=== PATIENT | male | born 1980 | race Caucasian/White ===

== ENCOUNTER → 2016-12-31 | Outpatient (CLI) | payer OTHER ==
[2016-12-31 11:54] LABS: Blood Urea Nitrogen 16 mg/dL (9-20); Non-African American GFR(MDRD) >60 (>60 ml/min/1.73 sqM)
== END | disposition home or self-care (01) ==
LOC: LABWHC1 11:02
PROVIDERS: ATTEND Internal Medicine Interventional Cardiology
DX: I71.2 Thoracic aortic aneurysm, without rupture (principal)
CPT/HCPCS: 36415; 82565; 84520

== ENCOUNTER 2017-08-05 00:22 | Emergency (ER) | payer OTHER ==
[2017-08-05 00:58] LABS: Appearance,Urine Clear (Clear); Bilirubin,Urine Negative (Negative); Glucose,Urine (UA) Negative (Negative); Ketones,Urine Trace (Negative); Leukocyte Esterase,Urine Negative (Negative); Mucus,Urine Few /hpf; Nitrite,Urine Negative (Negative); PH, Urine 5.5 (5.0-8.0); Particle Count 4225; Protein,Urine Trace (Negative); RBC,Urine 1 /hpf (0-5); Specific Gravity,Urine 1.025 (1.001-1.035); Sperm,Urine Rare /hpf; Squamous Epithelial Cell,Urine <1 /hpf (0-4); UA Billing (MACRO vs. MICRO) MICRO; WBC,Urine 1 /hpf (0-5)
--- NOTE | 2017-08-05 01:40 | ED ---
Male Urogenital HPI - General Chief complaint: Urogenital Stated complaint: Groin Pain Time Seen by Provider: 08/05/17 00:32 Source: patient, RN notes reviewed Mode of arrival: ambulatory Limitations: no limitations - History of Present Illness Initial comments: This a 37-year-old male presents emergency Department chief complaint of scrotal pain. Patient states that he's had some on and off pain persisted 1 away but returned again today after having intercourse. Patient states that he feels that there may be an abscess or some swelling around his left testicle. He states it is tender to touch. Patient denies any dysuria or hematuria. Denies any concerns about possible STDs. Patient states that he's never had any like this in the past no prior scrotal surgeries. He shouldn't denies any fever, chills, abdominal pain denies any penile lesions or sores. - Related Data Home Medications Medication Instructions Recorded Confirmed Fluticasone/Vilanterol [Breo 1 inhalation PO Q24HR 08/05/17 08/05/17 Ellipta 100-25 Mcg Inhaler] Loratadine [Claritin] 10 mg PO DAILY 08/05/17 08/05/17 Losartan/Hydrochlorothiazide 1 each PO DAILY 08/05/17 08/05/17 [Losartan-Hctz 100-12.5 mg Tab] Pantoprazole Sodium 40 mg PO DAILY 08/05/17 08/05/17 Sertraline [Zoloft] 50 mg PO BID 08/05/17 08/05/17 cloNIDine HCL [Catapres] 0.2 mg PO BID 08/05/17 08/05/17 Previous Rx's Medication Instructions Recorded amLODIPine [Norvasc] 5 mg PO DAILY #30 tab 03/30/16 Ibuprofen [Motrin] 600 mg PO Q8HR PRN #30 tab 08/05/17 Allergies Allergy/AdvReac Type Severity Reaction Status Date / Time No Known Allergies Allergy Verified 08/05/17 00:27 Review of Systems ROS Statement: Those systems with pertinent positive or pertinent negative responses have been documented in the HPI. ROS Other: All systems not noted in ROS Statement are negative. Past Medical History Past Medical History: GERD/Reflux, Hypertension Additional Past Medical History / Comment(s): Pt recently started on antihypertensives and an inhaler for URI. He has remote hx of exercise induced asthma as a child. History of Any Multi-Drug Resistant Organisms: None Reported Past Surgical History: Tonsillectomy Past Anesthesia/Blood Transfusion Reactions: Postoperative Nausea & Vomiting ( PONV) Past Psychological History: No Psychological Hx Reported Smoking Status: Current every day smoker Past Alcohol Use History: None Reported Past Drug Use History: None Reported - Past Family History Father Additional Family Medical History / Comment(s): Father was involved in a MVA and is wheelchair bound. Mother Family Medical History: No Reported History Additional Family Medical History / Comment(s): Mother is 61 yrs old. General Exam Limitations: no limitations General appearance: alert, in no apparent distress Respiratory exam: Present: normal lung sounds bilaterally. Absent: respiratory distress, wheezes, rales, rhonchi, stridor Cardiovascular Exam: Present: regular rate, normal rhythm, normal heart sounds. Absent: systolic murmur, diastolic murmur, rubs, gallop, clicks GI/Abdominal exam: Present: soft, normal bowel sounds. Absent: distended, tenderness, guarding, rebound, rigid exam: Present: testicular tenderness (Left mild), scrotal swelling (Minimal left). Absent: urethral discharge Course Vital Signs 08/05/17 00:24 Temperature 98.1 F Pulse Rate 68 Respiratory 18 Rate Blood Pressure 147/89 O2 Sat by Pulse 98 Oximetry Medical Decision Making - Medical Decision Making 37-year-old male presented for testicular mass with discomfort. Patient noticed a lump on his left testicle that was tender. Patient had an ultrasound which showed some inflammation of the left epididymis more consistent with epididymitis. Patient we treated for possible gonorrhea chlamydia infection. Patient's urinalysis does not show any acute infection issues urine is cultured. There was mention of possible intermittent torsion on ultrasound. The patient is symptom-free does not have any pain this time. I did inform him that if he has any increasing pain or excruciating pain that he needs to return to the emergency room immediately or follow-up with urology if office is open. He states he does understand this and has no further questions. - Lab Data Lab Results 08/05/17 Range/Units 00:45 Urine Color Yellow Urine Appearance Clear (Clear) Urine pH 5.5 (5.0-8.0) Ur Specific [place] 1.025 (1.001-1.035) Urine Protein Trace H (Negative) Urine Glucose (UA) Negative (Negative) Urine Ketones Trace H (Negative) Urine Blood Trace H (Negative) Urine Nitrite Negative (Negative) Urine Bilirubin Negative (Negative) Urine Urobilinogen 2.0 (<2.0) mg/dL Ur Leukocyte Esterase Negative (Negative) Urine RBC 1 (0-5) /hpf Urine WBC 1 (0-5) /hpf Ur Squamous Epith Cells <1 (0-4) /hpf Urine Mucus Few H (None) /hpf Urine Sperm Rare (None) /hpf Disposition Clinical Impression: Epididymitis Disposition: HOME SELF-CARE Condition: Stable Instructions: Epididymitis (ED) Additional Instructions: Please return to the Emergency Department if symptoms worsen or any other concerns. Prescriptions: Ibuprofen [Motrin] 600 mg PO Q8HR PRN #30 tab PRN Reason: Pain Referrals: Peri Matos MD [Primary Care Provider] - 1-2 days David Stoner MD [STAFF PHYSICIAN] - 1-2 days Time of Disposition: 02:35
--- NOTE | 2017-08-05 02:25 | US ---
EXAM: US Scrotum CLINICAL HISTORY: Reason: Pain TECHNIQUE: Real-time ultrasound of the scrotum with color Doppler and image documentation. COMPARISON: No relevant prior studies available. FINDINGS: TESTICLES: Right Testicle: 4.0 x 2.2 x 3.5 cm Left Testicle: 4.7 x 2.6 x 3.6 cm EPIDIDYMIS HEAD AP: Right Epididymis: 1.2 cm Left Epididymis: 1.3 cm Bilateral testicular flow visualized, slightly more prominent on the left. Bilateral hydroceles. Within the lateral portion of the left scrotum there is an echogenic shadowing focus likely a calcification measuring 0. 4 x 0.2 x 0.3 cm. The left epididymis body appears to have an anechoic lesion likely a cyst measuring approximately 0.8 x 0.9 x 0.9 cm. IMPRESSION: 1. Bilateral testicular flow visualized, slightly more prominent on the left. Larger left testicle, nonspecific. Correlate clinically regarding possibility of inflammatory/infectious process or intermittent torsion. 2. Bilateral hydroceles. 3. Left epididymal cyst.
[2017-08-05] MEDS ORDERED: cefTRIAXone 250 MG VIAL IM STA (02:33)
[2017-08-05] MEDS ORDERED: AZITHROMYCIN 250 MG TAB PO STA (02:33)
[2017-08-05 02:46] VITALS: BP 136/80; PULSE 80; RESP 16; TEMP 97.8
== END 2017-08-05 02:45 | disposition home or self-care (01) ==
LOC: EC 00:22
DX: N45.1 Epididymitis (principal); K21.9 Gastro-esophageal reflux disease without esophagitis; I10 Essential (primary) hypertension; F17.200 Nicotine dependence, unspecified, uncomplicated; Z79.51 Long term (current) use of inhaled steroids; Z79.899 Other long term (current) drug therapy
CPT/HCPCS: 81001; 87491; 87591; 87086; 93975; 76870; 99283; 96372; J0696

== ENCOUNTER → 2017-08-27 | Outpatient (CLI) | payer OTHER ==
--- NOTE | 2017-08-27 11:52 | CT ---
EXAMINATION TYPE: CT abdomen pelvis wo con DATE OF EXAM: 08/27/2017 COMPARISON: NONE HISTORY: Lt flank pain, testicular pain, hematuria CT DLP: 976 mGycm Examination of the solid and hollow viscera is limited given the lack of contrast. FINDINGS: LUNG BASES: No evidence for nodule. No evidence for infiltrate. Small sliding-type hiatal hernia dete cted. LIVER/GB: The gallbladder is unremarkable. No space-occupying hepatic lesion. PANCREAS: No pancreatic mass identified. No inflammatory process seen. SPLEEN: Splenomegaly with craniocaudal measurement of about 14 cm. Multiple perisplenic varices noted in the region of the splenic hilum. No intrasplenic lesions seen. ADRENALS: No adrenal nodules identified. No evidence for thickening. KIDNEYS: 1.5 cm poorly defined area of decreased attenuation lower pole left kidney may reflect a sma ll cystic lesion. Consider further evaluation with ultrasound. 2 mm nonobstructing calculus mid pole right kidney. No hydronephrosis. The urinary bladder appears unremarkable. BOWEL: Appendix has a normal appearance. No evidence of bowel obstruction. No inflammatory process. Lymph nodes: No evidence for adenopathy greater than 1 cm. Abdominal aorta: Atheromatous changes seen. No evidence for aneurysm. Genital organs: No significant abnormality. Other: No significant abnormality. IMPRESSION: 1. NONOBSTRUCTING CALCULUS RIGHT KIDNEY. 2. PROBABLE CYST LOWER POLE LEFT KIDNEY HOWEVER CONSIDER FURTHER CHARACTERIZATION WITH ULTRASOUND. 3. SPLENOMEGALY WITH PERISPLENIC VARICES. SMALL HIATAL HERNIA.
== END | disposition home or self-care (01) ==
LOC: RADCTMAIN 10:59
PROVIDERS: ATTEND Urology
DX: N20.0 Calculus of kidney (principal); K44.9 Diaphragmatic hernia without obstruction or gangrene; I86.8 Varicose veins of other specified sites; R16.1 Splenomegaly, not elsewhere classified
CPT/HCPCS: 74176

== ENCOUNTER → 2017-10-04 | Outpatient (CLI) | payer OTHER ==
[2017-10-04 11:56] LABS: EKG EKG PERFORMED
[2017-10-04 12:22] LABS: CH 25.9; CHCM 34.1; HDW 3.02; HGB 15.3 gm/dL (13.0-17.5); MCH 25.4 pg (25.0-35.0); MCHC 33.4 g/dL (31.0-37.0); MCV 76.3 fL (80.0-100.0); Mean Platelet Volume 8.3; RBC 6.03 m/uL (4.30-5.90); RDW 13.7 % (11.5-15.5); WBC 6.1 k/uL (3.8-10.6)
[2017-10-04 12:29] LABS: Potassium 4.4 mmol/L (3.5-5.1)
== END | disposition home or self-care (01) ==
LOC: LABPAT 11:10
PROVIDERS: ATTEND Surgery
DX: Z01.810 Encounter for preprocedural cardiovascular examination (principal); Z01.812 Encounter for preprocedural laboratory examination; Z98.890 Other specified postprocedural states
CPT/HCPCS: 36415; 84132; 85027; 93005

== ENCOUNTER 2017-10-07 09:56 | Observation (INO) | payer OTHER ==
[2017-10-04 08:22] VITALS: BMI 40.1
[~2017-10-07 09:56] MED LIST: HEPARIN SODIUM,PORCINE 5,000 UNIT/ML 1 ML VIAL SQ ONE; MIDAZOLAM 2 MG/2 ML VIAL IV PRN; ONDANSETRON 4 MG/2 ML VIAL IVP ONE; SCOPOLAMINE 1.5MG/72HR PATCH TRANSDERM ONE; ceFAZolin 3 GM in SODIUM CHLORIDE 0.9% 100 ML IVPB ONE
[2017-10-07] MEDS: LACTATED RINGERS 1,000 ML IV SCH ×2 (10:37→11:18)
[2017-10-07] MEDS: DEXAMETHASONE SOD PHOSPHATE 10 MG/ML 1 ML VIAL IV ONE ×2 (10:39→12:43)
--- NOTE | 2017-10-07 10:53 | P.GSHP ---
History of Present Illness H&P Date: 10/07/17 Chief Complaint: GERD This is a 37-year-old male referred from Dr. Matos.The patient has had long- standing problems with reflux esophagitis. The patient underwent recent EGD is found have evidence of esophagitis. Patient has been well informed on the procedure of laparoscopic Arjun fundoplication. The patient is aware the risk of the conversion to the open procedure, risk of injury to the stomach, liver and spleen. The patient is also a risk of recurrent GERD and dysphagia symptoms. The patient understands there is a postoperative diet of full liquids for 2 weeks after surgery. Past Medical History Past Medical History: Asthma, GERD/Reflux, Hypertension Additional Past Medical History / Comment(s): ATHLETIC INDUCED ASTHMA., CHRONIC BACK PAIN., RIGHT KIDNEY STONE (CURRENT), STATES PAIN LEFT SIDE. HITAL HERNIA History of Any Multi-Drug Resistant Organisms: None Reported Past Surgical History: Tonsillectomy Additional Past Surgical History / Comment(s): TONSILLS (19 YRS OLD). EGD 09-17 Past Anesthesia/Blood Transfusion Reactions: Postoperative Nausea & Vomiting ( PONV) Smoking Status: Current every day smoker - Past Family History Father Additional Family Medical History / Comment(s): . Mother Family Medical History: No Reported History Additional Family Medical History / Comment(s): . Medications and Allergies Home Medications Medication Instructions Recorded Confirmed Type Losartan/Hydrochlorothiazide 1 each PO QAM 08/05/17 10/07/17 History [Losartan-Hctz 100-12.5 mg Tab] Pantoprazole Sodium 40 mg PO HS 08/05/17 10/07/17 History Sertraline [Zoloft] 50 mg PO HS 08/05/17 10/07/17 History cloNIDine HCL [Catapres] 0.2 mg PO QAM 08/05/17 10/07/17 History HYDROcodone/APAP 10-325MG [[place] 0.5 tab PO BID PRN 09/16/17 10/07/17 History 10-325] amLODIPine BESYLATE [Norvasc] 10 mg PO QAM 09/16/17 10/07/17 History Allergies Allergy/AdvReac Type Severity Reaction Status Date / Time No Known Allergies Allergy Verified 10/07/17 10:05 Surgical - Exam Vital Signs Temp Pulse Resp BP Pulse Ox 97.5 F L 73 20 158/97 94 L 10/07/17 10:19 10/07/17 10:19 10/07/17 10:19 10/07/17 10:19 10/07/17 10:19 - General well developed, no distress - Eyes PERRL - ENT normal pinna - Neck no masses - Respiratory normal expansion - Cardiovascular Rhythm: regular - Abdomen Abdomen: soft, non tender Assessment and Plan Assessment: GERD. We'll perform laparoscopic Arjun fundal plication.
[2017-10-07] MEDS ORDERED: NEOSTIGMINE 1 MG/ML 10 ML VIAL ONE (11:21)
[2017-10-07] MEDS ORDERED: SUCCINYLCHOLINE CHLORIDE VIAL 200 MG/10 ML VIAL IV ONE (11:21)
[2017-10-07] MEDS ORDERED: GLYCOPYRROLATE 0.2 MG/ML 2 ML VIAL ONE (11:21)
[2017-10-07] MEDS ORDERED: hydrALAZINE HCL 20 MG/ML 1 ML VIAL ONE (11:21)
[2017-10-07] MEDS ORDERED: ROCURONIUM BROMIDE 10 MG/ML 10 ML VIAL IV ONE (11:21)
[2017-10-07] MEDS ORDERED: LIDOCAINE 1% INJ 10MG/ML (20 ML MDV) ONE (11:21)
[2017-10-07] MEDS ORDERED: PROPOFOL 10 MG/ML 20 ML VIAL IV ONE (11:21)
[2017-10-07] MEDS ORDERED: MIDAZOLAM 2 MG/2 ML VIAL ONE (11:21)
[2017-10-07] MEDS ORDERED: KETOROLAC 30 MG/ML 1 ML VIAL ONE (11:21)
[2017-10-07] MEDS ORDERED: fentaNYL (PF) 50 MCG/ML 2 ML AMP ONE (11:21)
[2017-10-07] MEDS ORDERED: BUPIVACAINE (PF) 0.25% 30 ML VIAL SQ ONE (11:47)
[2017-10-07] MEDS ORDERED: LIDOCAINE 2%-EPI 1:100,000 20 ML VIAL SQ ONE (11:47)
[2017-10-07] MEDS ORDERED: LABETALOL 5 MG/ML VIAL MDV IVP ONE (12:49)
[2017-10-07] MEDS ORDERED: ONDANSETRON 4 MG/2 ML VIAL IVP ONE (12:54)
[2017-10-07] MEDS ORDERED: LACTATED RINGERS 1,000 ML IV ONE ×2 (13:05)
[2017-10-07] MEDS ORDERED: ONDANSETRON 4 MG/2 ML VIAL IVP PRN (13:08)
--- NOTE | 2017-10-07 13:11 | P.OP ---
Date of Procedure: 10/07/17 Preoperative Diagnosis: GERD Postoperative Diagnosis: GERD Procedure(s) Performed: Laparoscopic Arjun fundal plication Anesthesia: HARRISON Surgeon: En Abel Estimated Blood Loss (ml): 10 Pathology: none sent Condition: stable Disposition: PACU Description of Procedure: The patient was placed on the operating table in the supine position. The patient received general anesthesia. And was placed in dorsal lithotomy position. The patient was prepped and draped in the usual sterile fashion. The skin incision sites were anesthetized with 1% local Xylocaine. The skin was incised in the left periumbilical area and then using a blade less 5 mm trocar under direct visualization panel cavity was entered. After adequate insufflation the laparoscope was then placed into the peritoneal cavity. Next a 5 mm trochars placed in the right epigastric position. Another 5 millimeter trocar the right lateral position. Another 5 millimeter trocar in the left lateral position a 5 mm trocar is placed in the left epigastric position. And then the initial 5 mm trocar was exchanged for a 10 mm trocar. The left lateral lobe liver was retracted. The hernia was seen. The crural defect was then dissected using the Harmonic scissors device. A 360 crural dissection was performed the esophagus stomach was reduced back into the peritoneal Cavity. The crural defect was then closed using 2-0 Ethibond suture. Next the fundus of the stomach was mobilized using the [place] scissors device. and then a 58-Luxembourger bougie dilator was placed oropharynx passed into the esophagus and stomach the fundal plication wrap was then performed by grasping the fundus posteriorly and bringing it around the esophagus and stomach fundoplication was then performed using 2-0 Ethibond suture. Care was taken that the fundal location rested over top of the intra-abdominal esophagus. There was no injury seen to the stomach or esophagus. The dilator was then withdrawn. The abdomen was irrigated there is no bleeding seen. The trochars were then withdrawn and then skin incision sites were closed using 3-0 Monocryl suture Steri-Strips are applied. Patient thought procedure well and sent to recovery room in stable condition.
[2017-10-07] MEDS: HYDROmorphone 0.5 MG/0.5 ML SYRINGE IVP PRN ×4 (13:14→13:29)
[2017-10-07] MEDS: D5-0.45% NACL WITH KCL 20MEQ/L 1,000 ML IV SCH ×2 (14:01→22:28)
--- NOTE | 2017-10-07 14:36 | P.CONS ---
History of Present Illness - Reason for Consult Elevated blood pressure - History of Present Illness 37-year-old gentleman came in for Tamia fundoplication elective surgery patient is comparing of shoulder pain patient has highly elevated blood pressures systolics going up to 200 patient is on losartan and- hydrochlorothiazide, along with amlodipine and once a day clonidine which he didn't take his medications today morning which led to elevated blood pressure and pain also contributed to his elevated blood pressure patient denied any chest pain denied any shortness of breath denied any nausea lightheadedness confusion but does have abdominal soreness bilateral shoulders soreness secondary to referred pain from intra-abdominal gas insufflation Review of Systems REVIEW OF SYSTEMS: CONSTITUTIONAL: No fever, no malaise, no fatigue. HEENT: No recent visual problems or hearing problems. Denied any sore throat. CARDIOVASCULAR: No chest pain, orthopnea, PND, no palpitations, no syncope. PULMONARY: No shortness of breath, no cough, no hemoptysis. GASTROINTESTINAL: As mentioned above NEUROLOGICAL: No headaches, no weakness, no numbness. HEMATOLOGICAL: Denies any bleeding or petechiae. GENITOURINARY: Denies any burning micturition, frequency, or urgency. MUSCULOSKELETAL/RHEUMATOLOGICAL: Denies any joint pain, swelling, or any muscle pain. ENDOCRINE: Denies any polyuria or polydipsia. The rest of the 14-point review of systems is negative. Past Medical History Past Medical History: Asthma, GERD/Reflux, Hypertension Additional Past Medical History / Comment(s): ATHLETIC INDUCED ASTHMA., CHRONIC BACK PAIN., RIGHT KIDNEY STONE (CURRENT), STATES PAIN LEFT SIDE. HITAL HERNIA History of Any Multi-Drug Resistant Organisms: None Reported Past Surgical History: Tonsillectomy Additional Past Surgical History / Comment(s): TONSILLS (19 YRS OLD), lap tamia 10/07/17. EGD 09-17-17 Past Anesthesia/Blood Transfusion Reactions: Postoperative Nausea & Vomiting ( PONV) Past Psychological History: Depression Additional Psychological History / Comment(s): Pt resides with his spouse and 2 children ages 16 and 3 1/2. He is independent. He drives. Smoking Status: Current every day smoker Past Alcohol Use History: Rare Additional Past Alcohol Use History / Comment(s): STARTED SMOKING AGE 24-SMOKES 1/2 PPD Past Drug Use History: None Reported - Past Family History Father Additional Family Medical History / Comment(s): . Mother Family Medical History: No Reported History Additional Family Medical History / Comment(s): . Medications and Allergies Home Medications Medication Instructions Recorded Confirmed Type Losartan/Hydrochlorothiazide 1 each PO QAM 08/05/17 10/07/17 History [Losartan-Hctz 100-12.5 mg Tab] Pantoprazole Sodium 40 mg PO HS 08/05/17 10/07/17 History Sertraline [Zoloft] 50 mg PO HS 08/05/17 10/07/17 History cloNIDine HCL [Catapres] 0.2 mg PO QAM 08/05/17 10/07/17 History HYDROcodone/APAP 10-325MG [[place] 0.5 tab PO BID PRN 09/16/17 10/07/17 History 10-325] amLODIPine BESYLATE [Norvasc] 10 mg PO QAM 09/16/17 10/07/17 History Allergies Allergy/AdvReac Type Severity Reaction Status Date / Time No Known Allergies Allergy Verified 10/07/17 10:05 Physical Exam Vitals: Vital Signs Temp Pulse Pulse Resp BP BP Pulse Ox 10/07/17 13:35 83 18 131/69 96 10/07/17 13:20 75 16 146/80 96 10/07/17 13:05 73 18 149/71 97 10/07/17 12:55 72 18 166/80 96 10/07/17 12:49 92 20 202/105 98 10/07/17 12:34 98.0 F 105 H 22 191/95 95 10/07/17 10:19 97.5 F L 73 20 158/97 94 L Intake and Output 10/06/17 10/07/17 10/07/17 22:59 06:59 14:59 Intake Total 1600 Output Total 20 Balance 1580 Intake: IV 1600 Output: Estimated Blood Loss 20 Other: Weight 127.006 kg Patient Weight 10/08/17 06:59 Weight 127.006 kg PHYSICAL EXAMINATION: GENERAL: The patient is alert and oriented x3, not in any acute distress. Obese HEENT: Pupils are round and equally reacting to light. EOMI. No scleral icterus. No conjunctival pallor. Normocephalic, atraumatic. No pharyngeal erythema. No thyromegaly. CARDIOVASCULAR: S1 and S2 present. No murmurs, rubs, or gallops. PULMONARY: Chest is clear to auscultation, no wheezing or crackles. ABDOMEN: Soft, nondistended, normoactive bowel sounds. Minimal postsurgical tenderness of the abdomen MUSCULOSKELETAL: No joint swelling or deformity. EXTREMITIES: No cyanosis, clubbing, or pedal edema. NEUROLOGICAL: Gross neurological examination did not reveal any focal deficits. SKIN: No rashes. Assessment and Plan Plan: #1 accelerated hypertension: Secondary to pain and patient did not take his medications patient will be resumed on amlodipine although I'll hold off on clonidine as well as lisinopril had chlorothiazide tomorrow with suspicion of perioperative hypotension once his pain is better controlled patient received labetalol postsurgically will monitor and depending on his that pressures will start him back on his home medications patient is also on IV fluids which is contributing to his pain #2 obesity: Counseling was provided #3 history of smoking #4 asthma without any acute exacerbation #5 gastroesophageal reflux disease and patient is status post Douglas fundoplication
--- NOTE | 2017-10-07 16:00 | FL ---
Single contrast esophagram EXAMINATION TYPE: FL esophagus cervic/pharynx DATE OF EXAM: 10/07/2017 3:53 PM COMPARISON: 5 images are submitted. 50 ml Omnipaque 350 given orally CLINICAL HISTORY: Status post Douglas fundoplication The patient ingested contrast without difficulty or delay. Noted are changes of Douglas fundoplicatio n. There is no evidence for leak or obstruction. Small amount of residual contrast within the distal esophagus. IMPRESSION: Post-surgical change of Douglas fundoplication without evidence for leak or obstruction.
[2017-10-07] MEDS: HYDROmorphone 2 MG/ML 1 ML SYRINGE IVP PRN ×2 (17:10→21:58)
[2017-10-07] MEDS ORDERED: SERTRALINE 50 MG TAB PO SCH (21:00)
[2017-10-07] MEDS ORDERED: PANTOPRAZOLE 40 MG TABLET PO SCH (21:00)
[2017-10-07] MEDS ORDERED: ONDANSETRON 4 MG/2 ML VIAL IVP STA (22:21)
[2017-10-07] MEDS ORDERED: METOCLOPRAMIDE 5 MG/ML 2 ML VIAL IVP PRN (22:22)
[2017-10-08] MEDS: HYDROmorphone 2 MG/ML 1 ML SYRINGE IVP PRN ×4 (01:03→10:46)
[2017-10-08 01:46] VITALS: RESP 16
[2017-10-08] MEDS: LACTATED RINGERS 1,000 ML IV SCH (05:38)
[2017-10-08] MEDS: D5-0.45% NACL WITH KCL 20MEQ/L 1,000 ML IV SCH ×2 (06:12→10:06)
[2017-10-08] MEDS ORDERED: cloNIDine HCL 0.1 MG TAB PO SCH (09:00)
[2017-10-08] MEDS ORDERED: amLODIPine 10 MG TAB PO SCH (09:00)
[2017-10-08] MEDS ORDERED: ENOXAPARIN 40 MG/0.4 ML SYRINGE SQ SCH (09:00)
[2017-10-08 09:12] LABS: Basophils % (A) 0 %; CH 25.6; Eosinophils % (A) 0 %; HCT 44.2 % (39.0-53.0); HDW 2.81; HGB 14.9 gm/dL (13.0-17.5); Luc # (Auto) 0.11; Luc % (Auto) 1; Lymphocytes # (A) 1.2 k/uL (1.0-4.8); Lymphocytes % (A) 9 %; MCH 25.5 pg (25.0-35.0); MCHC 33.7 g/dL (31.0-37.0); MCV 75.7 fL (80.0-100.0); Mean Platelet Volume 8.8; Microcytosis Slight; Monocytes # (A) 0.9 k/uL (0-1.0); Monocytes % (A) 7 %; Neutrophils # (A) 10.4 k/uL (1.3-7.7); Neutrophils % (A) 83 %; RBC 5.84 m/uL (4.30-5.90); RDW 15.7 % (11.5-15.5); WBC 12.6 k/uL (3.8-10.6); WBC (Perox) 12.58
[2017-10-08 09:36] LABS: Anion Gap 9 mmol/L; Blood Urea Nitrogen 12 mg/dL (9-20); Calcium 8.7 mg/dL (8.4-10.2); Carbon Dioxide 26 mmol/L (22-30); Chloride 101 mmol/L (98-107); Glucose 132 mg/dL (74-99); Non-African American GFR(MDRD) >60 (>60 ml/min/1.73 sqM); Potassium 3.5 mmol/L (3.5-5.1); Sodium 136 mmol/L (137-145)
[2017-10-08] MEDS ORDERED: NON-FORMULARY DRUG (Losartan/Hydrochlorothiazide [Losartan-Hctz 100-12.5 Mg Tab] 1 TAB) PO SCH (10:30)
[2017-10-08] MEDS ORDERED: HYDROcodone/APAP 10-325MG 1 EACH TAB PO PRN ×2 (11:34)
--- NOTE | 2017-10-08 12:10 | P.PN ---
Subjective Patient's blood pressure is bit elevated today patient is comparing of abdominal discomfort and patient is on IV fluids for elevated blood pressures secondary to IV fluids and the abdominal discomfort, IV fluids will be discussed in patient was started on full liquid diet. Constitutional: Denied any fatigue denied any fever. Cardio vascular: denied any chest pain, palpitations Gastrointestinal as mentioned above Pulmonary: Denied any shortness of breath cough Neurologic denied any new focal deficits Objective - Vital Signs Vital signs: Vital Signs Temp 98 F 10/08/17 07:48 Pulse 78 10/08/17 07:48 Resp 16 10/08/17 07:48 BP 168/104 10/08/17 07:48 Pulse Ox 97 10/08/17 08:52 Intake & Output 10/07/17 10/08/17 10/08/17 18:59 06:59 18:59 Intake Total 1600 Output Total 520 Balance 1080 Weight 127.006 kg 127.006 kg Intake: IV 1600 Output: Urine 500 Estimated Blood Loss 20 Other: Voiding Method Toilet Toilet Urinal # Voids 2 1 - Exam PHYSICAL EXAMINATION: GENERAL: The patient is alert and oriented x3, not in any acute distress. Obese HEENT: Pupils are round and equally reacting to light. EOMI. No scleral icterus. No conjunctival pallor. Normocephalic, atraumatic. No pharyngeal erythema. No thyromegaly. CARDIOVASCULAR: S1 and S2 present. No murmurs, rubs, or gallops. PULMONARY: Chest is clear to auscultation, no wheezing or crackles. ABDOMEN: Soft, nondistended, normoactive bowel sounds. Minimal postsurgical tenderness of the abdomen MUSCULOSKELETAL: No joint swelling or deformity. EXTREMITIES: No cyanosis, clubbing, or pedal edema. NEUROLOGICAL: Gross neurological examination did not reveal any focal deficits. SKIN: No rashes. - Labs CBC & Chem 7: 10/08/17 08:42 10/08/17 08:42 Labs: Abnormal Lab Results - Last 24 Hours (Table) 10/08/17 10/08/17 Range/Units 08:42 08:42 WBC 12.6 H (3.8-10.6) k/uL MCV 75.7 L (80.0-100.0) fL RDW 15.7 H (11.5-15.5) % Neutrophils # 10.4 H (1.3-7.7) k/uL Sodium 136 L (137-145) mmol/L Glucose 132 H (74-99) mg/dL Assessment and Plan Plan: #1 accelerated hypertension: Blood pressure is better controlled today patient was started back on his losartan disc any IV fluids. Pain management as per primary service #2 obesity: Counseling was provided #3 history of smoking #4 asthma without any acute exacerbation #5 gastroesophageal reflux disease and patient is status post Douglas fundoplication
--- NOTE | 2017-10-08 13:05 | P.DS ---
Providers Date of admission: 10/07/17 20:44 Expected date of discharge: 10/08/17 Attending physician: En Abel Consults: 10/07/17 13:08 Consult Physician Routine Consulting Provider: Demian Kaur Consult Reason/Comments: Medical management Do you want consulting provider notified?: Yes Primary care physician: Shawna Fields [facility] Course: 37-year-old male admitted on an elective basis to undergo pelvic laparoscopic Arjun fundoplication for symptomatic esophageal reflux symptoms. Patient has a long-standing problem with reflux esophagitis. Underwent a recent EGD was found to have evidence of esophagitis. Patient elected to undergo the surgical procedure. Postop there were no events. Patient was up ambulatory on the no dizziness or lightheadedness. Pain medication effective for pain control. Patient was tolerating a full liquid diet no nausea vomiting. Was felt to be appropriate to be discharged home Impression discharge diagnosis Morbid obesity due to excessive calories BLAIR 40 Hypertension essential A recent EGD with evidence of esophagitis Long-standing problem with symptomatic reflux esophagitis Postop October 07 laparoscopic Arjun fundoplication The above impression and plan of care have been discussed and directed by signing physician. Orquidea Couch nurse practitioner acting as scribe for signing physician. Plan - Discharge Summary Discharge Rx Participant: Yes New Discharge Prescriptions: New HYDROcodone/APAP 5-325MG [[place] 5-325] 1 tab PO Q4HR PRN #20 tab PRN Reason: Mild Pain Continue Pantoprazole Sodium 40 mg PO HS cloNIDine HCL [Catapres] 0.2 mg PO QAM Sertraline [Zoloft] 50 mg PO HS Losartan/Hydrochlorothiazide [Losartan-Hctz 100-12.5 mg Tab] 1 tab PO QAM amLODIPine BESYLATE [Norvasc] 10 mg PO QAM HYDROcodone/APAP 10-325MG [[place] 10-325] 0.5 tab PO BID PRN PRN Reason: Pain Discharge Medication List Losartan/Hydrochlorothiazide [Losartan-Hctz 100-12.5 mg Tab] 1 tab PO QAM [History] Pantoprazole Sodium 40 mg PO HS 08/05/17 [History] Sertraline [Zoloft] 50 mg PO HS 08/05/17 [History] cloNIDine HCL [Catapres] 0.2 mg PO QAM 08/05/17 [History] HYDROcodone/APAP 10-325MG [[place] 10-325] 0.5 tab PO BID PRN 09/16/17 [History] amLODIPine BESYLATE [Norvasc] 10 mg PO QAM 09/16/17 [History] HYDROcodone/APAP 5-325MG [[place] 5-325] 1 tab PO Q4HR PRN #20 tab 10/08/17 [Rx] Follow up Appointment(s)/Referral(s): En Abel MD [STAFF PHYSICIAN] - 1 Week Activity/Diet/Wound Care/Special Instructions: full liquid diet for 2 weeks after surgery No lifting over 4 pounds until seen by the surgeon May return to work after seen by the surgeon and a follow-up visit Shower daily no tub bath Report any redness drainage from surgical sites Discharge Disposition: HOME SELF-CARE
[2017-10-08 14:59] VITALS: BP 166/104; PULSE 80; TEMP 98.7
[2017-10-09] MEDS ORDERED: LOSARTAN 50 MG TAB PO SCH (09:00)
== END 2017-10-08 15:30 | disposition home or self-care (01) ==
LOC: OR 09:56 → 3SUR 12:25 → OR 20:44
PROVIDERS: ADMIT Surgery; ATTEND Surgery
DX: K21.0 Gastro-esophageal reflux disease with esophagitis (principal); I10 Essential (primary) hypertension; E66.01 Morbid (severe) obesity due to excess calories; Z68.41 Body mass index [BMI] 40.0-44.9, adult; M25.512 Pain in left shoulder; M25.511 Pain in right shoulder; F32.9 Major depressive disorder, single episode, unspecified; G89.29 Other chronic pain; M54.9 Dorsalgia, unspecified; J45.909 Unspecified asthma, uncomplicated; F17.200 Nicotine dependence, unspecified, uncomplicated; Z79.891 Long term (current) use of opiate analgesic; Z79.899 Other long term (current) drug therapy
CPT/HCPCS: 94760; 80048; 85025; 74210; 43280; G0378 ×2; J2250; J0330; J1170 ×3; J0360; J1644; J2710; J2765; Q9967; J0690; J2405; J2001; J1650; J3010; J1885; J2704

== ENCOUNTER 2017-12-27 22:23 | Emergency (ER) | payer OTHER ==
[2017-12-27] MEDS ORDERED: KETOROLAC 60 MG/2 ML VIAL IM STA (23:13)
[2017-12-27] MEDS ORDERED: ORPHENADRINE 30 MG/ML 2 ML VIAL IM STA (23:13)
--- NOTE | 2017-12-27 23:24 | ED ---
Back Pain HPI - General Chief Complaint: Back Pain/Injury Stated Complaint: Back pain Time Seen by Provider: 12/27/17 23:01 Source: patient Limitations: no limitations - History of Present Illness Initial Comments: This patient is a 37-year-old man with history of previous back pain, who states that he injured his back this afternoon. Patient states that he was lifting and turning at the same time when he felt a pop in his left low back. He states that since that time he has had increasing left low back pain. He states that it does feel like it radiates down his buttock to the lateral aspect of his knee. He states that the pain is aching, constant, moderate to severe. He states it's worse if he tries to assume a seated position. The patient denies weakness or numbness of the extremities. He has not had a change in bladder or bowel function. There is no saddle anesthesia. There is no pain to the abdomen. MD Complaint: back pain -: hour(s) Similar Symptoms Previously: Yes Place: home Radiation: left leg Severity: severe Quality: aching Consistency: constant Worsens With: sitting upright Context: while lifting, turning/twisting - Related Data Home Medications Medication Instructions Recorded Confirmed Losartan/Hydrochlorothiazide 1 tab PO QAM 08/05/17 12/27/17 [Losartan-Hctz 100-12.5 mg Tab] Sertraline [Zoloft] 50 mg PO HS 08/05/17 12/27/17 cloNIDine HCL [Catapres] 0.2 mg PO QAM 08/05/17 12/27/17 amLODIPine BESYLATE [Norvasc] 10 mg PO QAM 09/16/17 12/27/17 Previous Rx's Medication Instructions Recorded Ibuprofen [Motrin] 600 mg PO Q8HR PRN #20 tab 12/28/17 Methocarbamol [Robaxin-750] 750 mg PO TID PRN #30 tablet 12/28/17 Allergies Allergy/AdvReac Type Severity Reaction Status Date / Time No Known Allergies Allergy Verified 12/27/17 23:05 Review of Systems ROS Statement: Those systems with pertinent positive or pertinent negative responses have been documented in the HPI. ROS Other: All systems not noted in ROS Statement are negative. Constitutional: Denies: fever, chills, weakness Respiratory: Denies: dyspnea Cardiovascular: Denies: chest pain, edema Gastrointestinal: Denies: abdominal pain, nausea, vomiting, diarrhea, constipation Genitourinary: Denies: dysuria, hematuria, testicular pain, testicular mass Musculoskeletal: Reports: as per HPI, back pain Neurological: Denies: weakness, numbness Past Medical History Past Medical History: Asthma, GERD/Reflux, Hypertension Additional Past Medical History / Comment(s): ATHLETIC INDUCED ASTHMA., CHRONIC BACK PAIN., RIGHT KIDNEY STONE (CURRENT), STATES PAIN LEFT SIDE. HITAL HERNIA History of Any Multi-Drug Resistant Organisms: None Reported Past Surgical History: Tonsillectomy Additional Past Surgical History / Comment(s): TONSILLS (19 YRS OLD), lap tamia 10/07/17. EGD 09-17-17 Past Anesthesia/Blood Transfusion Reactions: Postoperative Nausea & Vomiting ( PONV) Past Psychological History: Depression Smoking Status: Current every day smoker Past Alcohol Use History: Rare Past Drug Use History: None Reported - Past Family History Father Additional Family Medical History / Comment(s): . Mother Family Medical History: No Reported History Additional Family Medical History / Comment(s): . General Exam Limitations: no limitations General appearance: alert, in no apparent distress Head exam: Present: atraumatic, normocephalic Respiratory exam: Present: normal lung sounds bilaterally. Absent: respiratory distress, wheezes, rales, rhonchi, stridor Cardiovascular Exam: Present: regular rate, normal rhythm, normal heart sounds. Absent: systolic murmur, diastolic murmur, rubs, gallop GI/Abdominal exam: Present: soft. Absent: distended, tenderness, guarding, rebound, rigid, mass, pulsatile mass Extremities exam: Present: normal inspection, normal capillary refill. Absent: pedal edema, calf tenderness Back exam: Absent: CVA tenderness (R), CVA tenderness (L), vertebral tenderness Neurological exam: Present: alert, reflexes normal. Absent: motor sensory deficit Skin exam: Present: warm, dry, intact, normal color. Absent: rash Course Vital Signs 12/27/17 22:43 Temperature 97.5 F L Pulse Rate 48 L Respiratory 20 Rate Blood Pressure 108/66 O2 Sat by Pulse 99 Oximetry Disposition Clinical Impression: Mechanical back pain Disposition: HOME SELF-CARE Condition: Fair Instructions: Acute Low Back Pain (ED) Prescriptions: Ibuprofen [Motrin] 600 mg PO Q8HR PRN #20 tab PRN Reason: Pain Methocarbamol [Robaxin-750] 750 mg PO TID PRN #30 tablet PRN Reason: pain Referrals: Peri Matos MD [Primary Care Provider] - 1-2 days Braxton Ny DO [Doctor of Osteopathic Medicine] - 1-2 days
[2017-12-27] MEDS ORDERED: HYDROmorphone 0.5 MG/0.5 ML SYRINGE IM STA (23:58)
[2017-12-28 01:07] VITALS: BP 142/70; PULSE 78; RESP 18; TEMP 98.2
== END 2017-12-28 01:07 | disposition home or self-care (01) ==
LOC: EC 22:23
DX: M54.5 Low back pain (principal); M25.562 Pain in left knee; I10 Essential (primary) hypertension; F32.9 Major depressive disorder, single episode, unspecified; F17.200 Nicotine dependence, unspecified, uncomplicated; Z79.899 Other long term (current) drug therapy; X50.1XXA Overexertion from prolonged static or awkward postures, initial encounter; Y92.009 Unspecified place in unspecified non-institutional (private) residence as the place of occurrence of the external cause
CPT/HCPCS: 99283; 96372 ×3; J2360; J1885; J1170

== ENCOUNTER 2018-02-09 15:25 | Emergency (ER) | payer OTHER ==
[2018-02-09] MEDS ORDERED: IPRATROPIUM-ALBUTEROL 3 ML NEB INHALATION STA (16:56)
--- NOTE | 2018-02-09 16:58 | ED ---
URI HPI - General Chief Complaint: Upper Respiratory Infection Stated Complaint: cough/congestion/SOB Time Seen by Provider: 02/09/18 16:17 Source: patient, RN notes reviewed Mode of arrival: ambulatory Limitations: no limitations - History of Present Illness Initial Comments: This a 38-year-old male presents emergency Department chief complaint of cough congestion times one week. Patient states he was started on amoxicillin, Briel and a Medrol Dosepak by Dr. Smith. Patient states that is not improved. Patient denies any fever or chills. Does complain of some body aches. Patient states his cough is so hard that it hurts all over. He states when he takes a deep inspiration makes it worse. Patient denies any headache or dizziness at this time denies ear pain or shortness. He has no significant history of lung disease including asthma other than childhood asthma in no history of COPD. Patient denies any drug ALLERGIES. - Related Data Home Medications Medication Instructions Recorded Confirmed Losartan/Hydrochlorothiazide 1 tab PO QAM 08/05/17 02/09/18 [Losartan-Hctz 100-12.5 mg Tab] Sertraline [Zoloft] 50 mg PO HS 08/05/17 02/09/18 cloNIDine HCL [Catapres] 0.2 mg PO QAM 08/05/17 02/09/18 amLODIPine BESYLATE [Norvasc] 10 mg PO QAM 09/16/17 02/09/18 Amoxicillin 500 mg PO TID 02/09/18 02/09/18 Fluticasone/Vilanterol [Breo 1 puff INHALATION RT-DAILY 02/09/18 02/09/18 Ellipta 200-25 Mcg INH] methylPREDNISolone [Medrol Dose See Taper PO DIRECTED 02/09/18 02/09/18 Pack] Previous Rx's Medication Instructions Recorded Albuterol Sulfate [Proair Hfa] 1 - 2 puff INHALATION Q4HR PRN #1 02/09/18 inhaler Azithromycin [Zithromax Z-pack] 0 mg PO DIRECTED #1 pack 02/09/18 predniSONE 50 mg PO DAILY #5 tab 02/09/18 Allergies Allergy/AdvReac Type Severity Reaction Status Date / Time bee venom protein (honey bee) Allergy Swelling Verified 02/09/18 16:26 Review of Systems ROS Statement: Those systems with pertinent positive or pertinent negative responses have been documented in the HPI. ROS Other: All systems not noted in ROS Statement are negative. Past Medical History Past Medical History: Asthma, GERD/Reflux, Hypertension Additional Past Medical History / Comment(s): ATHLETIC INDUCED ASTHMA., CHRONIC BACK PAIN., RIGHT KIDNEY STONE (CURRENT), STATES PAIN LEFT SIDE. HIATAL HERNIA History of Any Multi-Drug Resistant Organisms: None Reported Past Surgical History: Tonsillectomy Additional Past Surgical History / Comment(s): TONSILS (19 YRS OLD), lap tamia 10/07/17. EGD 09-17-17 Past Anesthesia/Blood Transfusion Reactions: Postoperative Nausea & Vomiting ( PONV) Past Psychological History: Depression Smoking Status: Current every day smoker Past Alcohol Use History: Rare Past Drug Use History: None Reported - Past Family History Father Additional Family Medical History / Comment(s): . Mother Family Medical History: No Reported History Additional Family Medical History / Comment(s): . General Exam Limitations: no limitations General appearance: alert, in no apparent distress Head exam: Present: atraumatic, normocephalic, normal inspection Eye exam: Present: normal appearance, PERRL, EOMI. Absent: scleral icterus, conjunctival injection, periorbital swelling ENT exam: Present: normal exam, normal oropharynx, mucous membranes moist, TM's normal bilaterally, normal external ear exam Neck exam: Present: normal inspection, full ROM. Absent: tenderness, meningismus, lymphadenopathy Respiratory exam: Present: wheezes, rhonchi. Absent: normal lung sounds bilaterally, respiratory distress, rales, stridor Cardiovascular Exam: Present: regular rate, normal rhythm, normal heart sounds. Absent: systolic murmur, diastolic murmur, rubs, gallop, clicks GI/Abdominal exam: Present: soft, normal bowel sounds. Absent: distended, tenderness, guarding, rebound, rigid Course Vital Signs 02/09/18 02/09/18 02/09/18 15:37 16:00 17:22 Temperature 98.2 F Pulse Rate 66 68 Respiratory 18 20 Rate Blood Pressure 131/80 O2 Sat by Pulse 94 L Oximetry 02/09/18 17:40 Temperature Pulse Rate 70 Respiratory Rate Blood Pressure O2 Sat by Pulse Oximetry Medical Decision Making - Medical Decision Making 38-year-old male presented unresponsive for cough congestion. Patient did have notable wheezing on exam. Patient didn have breathing treatment here which helped. Patient's chest x-ray shows no evidence of pneumonia. Patient will be discharged pro-air inhaler, prednisone 50 mg for 5 days and is azthrimyocin. Patient is advised follow-up for recheck and return for any worsening symptoms. - Lab Data Lab Results 02/09/18 Range/Units 17:17 Influenza Type A RNA Not Detected (Not Detectd) Influenza Type B (PCR) Not Detected (Not Detectd) Disposition Clinical Impression: Acute bronchitis with bronchospasm Disposition: HOME SELF-CARE Condition: Stable Instructions: Acute Bronchitis (ED) Additional Instructions: Please return to the Emergency Department if symptoms worsen or any other concerns. Prescriptions: Albuterol Sulfate [Proair Hfa] 1 - 2 puff INHALATION Q4HR PRN #1 inhaler PRN Reason: difficulty in breathing Azithromycin [Zithromax Z-pack] 0 mg PO DIRECTED #1 pack predniSONE 50 mg PO DAILY #5 tab Referrals: Peri Matos MD [Primary Care Provider] - 1-2 days Time of Disposition: 17:55
--- NOTE | 2018-02-09 17:08 | XR ---
EXAMINATION: XR chest 2V DATE AND TIME: 02/09/2018 4:30 PM ORDERING PROVIDER: Stephen Calvert CLINICAL INDICATION: Cough TECHNIQUE: PA and lateral COMPARISON: 03/29/2016 DESCRIPTION: The lungs are clear. The pleural spaces are negative. The cardiac silhouette is not enlarged. The mediastinal and pleural silhouettes are unremarkable. The skeletal structures are intact without focal findings. The soft tissues are unremarkable. IMPRESSION: NO ACUTE PROCESS.
[2018-02-09 18:20] VITALS: BP 126/79; PULSE 69; RESP 16; TEMP 97
== END 2018-02-09 18:20 | disposition home or self-care (01) ==
LOC: EC 15:25
DX: J20.9 Acute bronchitis, unspecified (principal); J45.990 Exercise induced bronchospasm; I10 Essential (primary) hypertension; F32.9 Major depressive disorder, single episode, unspecified; F17.200 Nicotine dependence, unspecified, uncomplicated; Z79.899 Other long term (current) drug therapy; Z79.51 Long term (current) use of inhaled steroids; Z79.52 Long term (current) use of systemic steroids; Z91.030 Bee allergy status
CPT/HCPCS: 71046; 87502; 94640; 99284

== ENCOUNTER 2018-06-27 18:38 | Emergency (ER) | payer OTHER ==
--- NOTE | 2018-06-27 20:15 | XR ---
EXAMINATION TYPE: XR chest 2V DATE OF EXAM: 06/27/2018 COMPARISON: 02/09/2018 HISTORY: Chest pain TECHNIQUE: Frontal and lateral views of the chest are obtained. FINDINGS: Heart and mediastinum are normal. Lungs are clear. Diaphragm is normal. Bony thorax appear s normal. IMPRESSION: Normal chest. No change.
--- NOTE | 2018-06-27 20:18 | XR ---
EXAMINATION TYPE: XR shoulder limited LT DATE OF EXAM: 06/27/2018 COMPARISON: NONE HISTORY: Pain TECHNIQUE: 2 views FINDINGS: I see no fracture nor dislocation. Joint spaces are normal. There are no pathologic calcifi cations. IMPRESSION: Negative left shoulder exam.
--- NOTE | 2018-06-27 20:18 | XR ---
EXAMINATION TYPE: XR forearm LT DATE OF EXAM: 06/27/2018 COMPARISON: NONE HISTORY: Pain. Injury. TECHNIQUE: 2 views FINDINGS: Radius and ulna appear intact. I see no fracture nor dislocation. Wrist joint and elbow asya nt appear intact. IMPRESSION: Negative left forearm exam.
--- NOTE | 2018-06-27 20:19 | XR ---
EXAMINATION TYPE: XR knee complete LT DATE OF EXAM: 06/27/2018 COMPARISON: NONE HISTORY: Knee pain TECHNIQUE: 3 views FINDINGS: There is no fracture nor dislocation. Joint spaces are fairly normal. There is no sign of j oint effusion. IMPRESSION: Negative left knee exam
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
[2018-06-27 22:55] LABS: Appearance,Urine Clear (Clear); Bilirubin,Urine Negative (Negative); Blood,Urine Trace (Negative); Color,Urine Yellow; Glucose,Urine (UA) Negative (Negative); Ketones,Urine 1+ (Negative); Leukocyte Esterase,Urine Negative (Negative); Mucus,Urine Many /hpf; Nitrite,Urine Negative (Negative); PH, Urine 5.5 (5.0-8.0); Protein,Urine Trace (Negative); RBC,Urine 1 /hpf (0-5); Specific Gravity,Urine 1.027 (1.001-1.035); WBC,Urine 1 /hpf (0-5)
[2018-06-27 23:51] LABS: Basophils % (A) 0 %; Eosinophils # (A) 0.1 k/uL (0-0.7); Eosinophils % (A) 1 %; HCT 46.8 % (39.0-53.0); HGB 16.1 gm/dL (13.0-17.5); Lymphocytes # (A) 1.8 k/uL (1.0-4.8); Lymphocytes % (A) 17 %; MCH 25.7 pg (25.0-35.0); MCHC 34.4 g/dL (31.0-37.0); MCV 74.8 fL (80.0-100.0); Mean Platelet Volume 8.3; Microcytosis Slight; Monocytes # (A) 0.4 k/uL (0-1.0); Monocytes % (A) 4 %; Neutrophils # (A) 8.3 k/uL (1.3-7.7); Neutrophils % (A) 77 %; Platelet Count 188 k/uL (150-450); RBC 6.27 m/uL (4.30-5.90); RDW 13.3 % (11.5-15.5); WBC 10.7 k/uL (3.8-10.6)
[2018-06-28] LABS: ALT 33 U/L (21-72); AST 26 U/L (17-59); Albumin 4.7 g/dL (3.5-5.0); Alkaline Phosphatase 62 U/L (38-126); Anion Gap 12 mmol/L; Blood Urea Nitrogen 18 mg/dL (9-20); Calcium 9.6 mg/dL (8.4-10.2); Carbon Dioxide 19 mmol/L (22-30); Chloride 107 mmol/L (98-107); Glucose 93 mg/dL (74-99); Potassium 3.3 mmol/L (3.5-5.1); Sodium 138 mmol/L (137-145); Total Bilirubin 0.9 mg/dL (0.2-1.3); Total Protein 7.2 g/dL (6.3-8.2)
[2018-06-28 00:02] LABS: INR 1.1 (<1.2); Partial Thromboplastin Time 25.8 sec (22.0-30.0); Prothrombin Time 10.5 sec (9.0-12.0)
[2018-06-28] MEDS ORDERED: MORPHINE SULFATE 4 MG/ML SYRINGE IVP STA (00:10)
--- NOTE | 2018-06-28 00:12 | CT ---
EXAMINATION TYPE: CT ChestAbdPelvis w con DATE OF EXAM: 06/27/2018 COMPARISON: 08/27/2017 HISTORY: trauma CT DLP: 1943.50 mGycm Automated exposure control for dose reduction was used. CONTRAST: CT scan of the chest, abdomen and pelvis is performed without Oral Contrast and with IV Contrast, pat ient injected with 100 mL of Isovue 300. FINDINGS: The lungs are clear of infiltrate. There is no pleural effusion or pneumothorax. There is no evidence of pneumoperitoneum. Heart size is normal. There is no mediastinal adenopathy. There are no hilar ma sses. Thoracic aorta is intact. Liver spleen pancreas gallbladder appear normal. Bile ducts are not dilated. There is no adrenal mass . There are clips at the gastroesophageal junction. Kidneys show satisfactory contrast opacification. There is no hydronephrosis. Bladder distends smoothly. There is no evidence of a pelvic mass. Append ix appears normal. There is small cortical cyst lower pole left kidney. There is slight depression of the superior endplate of T10 that could be an acute fracture of less th an 5%. The sternum is intact. The bony pelvis appears intact. The ribs appear intact. IMPRESSION: There is mild compression fracture of T10 that is probably acute. Fracture is new compare d to old chest CT scan of 11/06/2016.
[2018-06-28] MEDS ORDERED: ONDANSETRON 4 MG/2 ML VIAL IVP STA (00:57)
[2018-06-28 01:42] VITALS: BP 167/89; PULSE 97; RESP 18; TEMP 97.8
== END 2018-06-28 01:40 | disposition home or self-care (01) ==
LOC: EC 18:38
DX: S22.070A Wedge compression fracture of T9-T10 vertebra, initial encounter for closed fracture (principal); S40.012A Contusion of left shoulder, initial encounter; S80.212A Abrasion, left knee, initial encounter; M54.2 Cervicalgia; R10.9 Unspecified abdominal pain; J45.990 Exercise induced bronchospasm; I10 Essential (primary) hypertension; G89.29 Other chronic pain; F32.9 Major depressive disorder, single episode, unspecified; F17.200 Nicotine dependence, unspecified, uncomplicated; Z79.51 Long term (current) use of inhaled steroids; Z79.52 Long term (current) use of systemic steroids; Z79.899 Other long term (current) drug therapy; Z91.018 Allergy to other foods; V86.59XA Driver of other special all-terrain or other off-road motor vehicle injured in nontraffic accident, initial encounter; Y92.69 Other specified industrial and construction area as the place of occurrence of the external cause; Y99.0 Civilian activity done for income or pay
CPT/HCPCS: 36415; 80053; 85025; 85610; 85730; 81001; 73020; 73090; 73562; 71046; 71260; 74177; 99284; 96374; 96375; J2270; J2405; Q9967

== ENCOUNTER 2018-12-14 18:47 | Emergency (ER) | payer OTHER ==
[2018-12-14 19:04] VITALS: BP 133/89; PULSE 52; RESP 22; TEMP 97.8
[2018-12-14] MEDS ORDERED: ORPHENADRINE 30 MG/ML 2 ML VIAL IM STA (19:13)
[2018-12-14] MEDS ORDERED: methylPREDNISolone SOD SUCCI 125 MG/2 ML VIAL IM STA (19:14)
[2018-12-14] MEDS ORDERED: KETOROLAC 60 MG/2 ML VIAL IM STA (19:14)
--- NOTE | 2018-12-14 19:22 | ED ---
Back Pain HPI - General Chief Complaint: Back Pain/Injury Stated Complaint: back pain Time Seen by Provider: 12/14/18 19:05 Source: patient Limitations: no limitations - History of Present Illness Initial Comments: 38-year-old male presents with low back pain for the last week. Patient states it started after shoveling and lifting a heavy trashcan. Patient states he thinks he worsened after he was working. Patient denies any direct injury. No fall. No bowel bladder incontinence no saddle numbness. Patient does feel pain into his right buttocks and upper right posterior leg. Patient has had previous back pain but no previous surgeries. Patient has tried a [place] relaxer and ibuprofen all without relief. Patient states he stepped in a car at work for a few hours and it got worse. No abdominal pain no neck pain no headache or loss of consciousness. MD Complaint: back pain -: week(s) (1) Similar Symptoms Previously: Yes Radiation: buttocks, right leg Severity scale (1-10): 9 Quality: burning, aching Consistency: constant Improves With: immobilization Worsens With: movement Context: while lifting, turning/twisting, bending Associated Symptoms: denies other symptoms - Related Data Home Medications Medication Instructions Recorded Confirmed Losartan/Hydrochlorothiazide 1 tab PO QAM 08/05/17 02/09/18 [Losartan-Hctz 100-12.5 mg Tab] Sertraline [Zoloft] 50 mg PO HS 08/05/17 02/09/18 cloNIDine HCL [Catapres] 0.2 mg PO QAM 08/05/17 02/09/18 amLODIPine BESYLATE [Norvasc] 10 mg PO QAM 09/16/17 02/09/18 Amoxicillin 500 mg PO TID 02/09/18 02/09/18 Fluticasone/Vilanterol [Breo 1 puff INHALATION RT-DAILY 02/09/18 02/09/18 Ellipta 200-25 Mcg INH] Previous Rx's Medication Instructions Recorded Albuterol Sulfate [Proair Hfa] 1 - 2 puff INHALATION Q4HR PRN #1 02/09/18 inhaler Hydrocodone/Acetaminophen [[place] 1 tab PO Q6HR PRN #12 tab 06/28/18 5-325] Ibuprofen [Motrin] 600 mg PO Q8HR PRN #30 tab 08/11/18 Cyclobenzaprine [Flexeril] 10 mg PO TID PRN #20 tab 12/14/18 Hydrocodone/Acetaminophen [[place] 1 each PO Q6HR PRN #12 tab 12/14/18 5-325] methylPREDNISolone [Medrol] 4 mg PO DIRECTED #21 tab.ds.pk 12/14/18 Allergies Allergy/AdvReac Type Severity Reaction Status Date / Time bee venom protein (honey bee) Allergy Swelling Verified 12/14/18 19:04 Review of Systems ROS Statement: Those systems with pertinent positive or pertinent negative responses have been documented in the HPI. ROS Other: All systems not noted in ROS Statement are negative. Constitutional: Reports: as per HPI. Denies: fever, weakness Gastrointestinal: Denies: abdominal pain, nausea, vomiting, diarrhea, constipation Genitourinary: Denies: urgency, frequency Musculoskeletal: Reports: back pain Skin: Denies: rash Neurological: Denies: headache, weakness, numbness, paresthesias, abnormal gait Past Medical History Past Medical History: Asthma, GERD/Reflux, Hypertension Additional Past Medical History / Comment(s): ATHLETIC INDUCED ASTHMA., CHRONIC BACK PAIN., RIGHT KIDNEY STONE (CURRENT), STATES PAIN LEFT SIDE. HIATAL HERNIA History of Any Multi-Drug Resistant Organisms: None Reported Past Surgical History: Tonsillectomy Additional Past Surgical History / Comment(s): TONSILS (19 YRS OLD), lap tamia 10/07/17. EGD 09-17-17 Past Anesthesia/Blood Transfusion Reactions: Postoperative Nausea & Vomiting ( PONV) Past Psychological History: Depression Smoking Status: Current every day smoker Past Alcohol Use History: Rare Past Drug Use History: None Reported - Past Family History Father Additional Family Medical History / Comment(s): . Mother Family Medical History: No Reported History Additional Family Medical History / Comment(s): . General Exam Limitations: no limitations General appearance: alert, in distress (PAIN) Neck exam: Present: normal inspection. Absent: tenderness, meningismus, lymphadenopathy Respiratory exam: Present: normal lung sounds bilaterally. Absent: respiratory distress, wheezes, rales, rhonchi, stridor Cardiovascular Exam: Present: regular rate, normal rhythm, normal heart sounds. Absent: systolic murmur, diastolic murmur, rubs, gallop, clicks GI/Abdominal exam: Present: soft, normal bowel sounds. Absent: distended, tenderness, guarding, rebound, rigid Extremities exam: Present: normal inspection, full ROM, normal capillary refill. Absent: tenderness, pedal edema, joint swelling, calf tenderness Back exam: Present: normal inspection, muscle spasm, paraspinal tenderness. Absent: full ROM (UNABLE TO TEST DUE TO PAIN LEVEL, -SLR B/L), tenderness (B/L LOW BACK AREA), rash noted Neurological exam: Present: alert, oriented X3, CN II-XII intact Psychiatric exam: Present: normal affect, normal mood Skin exam: Present: warm, dry, intact, normal color. Absent: rash Course Vital Signs 12/14/18 19:02 Temperature 97.8 F Pulse Rate 52 L Respiratory 22 Rate Blood Pressure 133/89 O2 Sat by Pulse 98 Oximetry Medical Decision Making - Medical Decision Making Reviewed xray: neg for any acute changes but noted ome deg changes, told to f/u with ortho for possible MRI in future pt aware pt improved after injections, pl 5-04/27 Discussed important if he stretching possible physical therapy in the near future following up with administrative support specialist patient and family aware. Disposition Clinical Impression: Strain of lumbar region Disposition: HOME SELF-CARE Condition: Good Instructions (If sedation given, give patient instructions): Acute Low Back Pain (ED) Prescriptions: Cyclobenzaprine [Flexeril] 10 mg PO TID PRN #20 tab PRN Reason: Muscle Pain Hydrocodone/Acetaminophen [[place] 5-325] 1 each PO Q6HR PRN #12 tab PRN Reason: Pain methylPREDNISolone [Medrol] 4 mg PO DIRECTED #21 tab.ds.pk Is patient prescribed a controlled substance at d/c from ED?: Yes When asked, does pt state using other controlled substances?: Yes If prescribed controlled substance>3 days was MAPS reviewed?: Prescribed <3 Days If opioid is for acute pain is fill amount 7 days or less?: Yes If Rx opioid, was Start Talking consent form obtained?: Yes Referrals: Peri Matos MD [Primary Care Provider] - 1-2 days Prem Currie DO [Medical Doctor] - 1-2 days Time of Disposition: 20:20
--- NOTE | 2018-12-14 20:16 | XR ---
Lumbar spine HISTORY: Low back pain 3 views of the lumbar spine Lumbar vertebral bodies show preserved height, alignment, and bone mineralization. Disc spaces remark able for disc height loss L4-5, L5-S1. IMPRESSION: No acute abnormality. Suspect mild degenerative disc disease, consider lumbar MRI
== END 2018-12-14 20:41 | disposition home or self-care (01) ==
LOC: EC 18:47
DX: S39.012A Strain of muscle, fascia and tendon of lower back, initial encounter (principal); I10 Essential (primary) hypertension; J45.990 Exercise induced bronchospasm; F32.9 Major depressive disorder, single episode, unspecified; F17.200 Nicotine dependence, unspecified, uncomplicated; Z91.018 Allergy to other foods; Z79.51 Long term (current) use of inhaled steroids; Z79.899 Other long term (current) drug therapy; Z53.8 Procedure and treatment not carried out for other reasons; X50.1XXA Overexertion from prolonged static or awkward postures, initial encounter; Y93.H1 Activity, digging, shoveling and raking
CPT/HCPCS: 72100; 99283; 96372 ×2; J2930; J1885